=== PATIENT | male | born 1940 | race Hispanic/Latino ===

== ENCOUNTER 2017-10-30 06:19 | Day surgery (SDC) | payer MEDICARE, OTHER ==
[2017-10-29 08:49] VITALS: BMI 23.7
[2017-10-30 07:08] LABS: CALCIUM 9.1 mg/dL (8.4-10.5)
[2017-10-30 07:13] LABS: BASO # 0.04 K/mm3 (0.0-2.0); BASO % 0.4 % (0.0-3.0); EOS # 0.2 (0.0-0.7); EOS % 2.4 % (1.5-5.0); GRAN # 5.46 (1.4-6.5); GRAN % 61.3 % (50.0-68.0); HEMOGLOBIN 13.3 g/dL (14.0-18.0); LYMPH # 2.2 (1.2-3.4); LYMPH % 24.8 % (22.0-35.0); MEAN CELL VOLUME 88.5 fl (80.0-105.0); MEAN CORPUSCULAR HGB CONC 33.8 g/dl (31.0-37.0); MEAN PLATELET VOLUME 10.1 fl (7.0-11.0); MONO % 11.1 % (1.0-6.0); RBC 4.44 10^6/uL (3.5-6.1); RED CELL DISTRIBUTION WIDTH 13.2 % (11.5-14.5); WHITE BLOOD COUNT 8.9 10^3/ul (4.5-11.0)
[2017-10-30 07:23] LABS: INR 1.31 (0.93-1.08); PARTIAL THROMBOPLASTIN TIME 33.7 Seconds (25.1-36.5); PROTHROMBIN TIME 15.2 SECONDS (9.4-12.5)
[2017-10-30] MEDS ORDERED: Iodixanol 320 mg/ml 150 ml Bottle IV ONE (07:51)
[2017-10-30] MEDS ORDERED: Iodixanol 320 MG/ML 200 ML BOTTLE IV ONE (07:52)
[2017-10-30] MEDS ORDERED: Lidocaine 2% Inj (20ml) ONE (07:55)
[2017-10-30] MEDS ORDERED: Iodixanol 320 MG/ML 100 ML BOTTLE IV ONE (07:57)
[2017-10-30] MEDS ORDERED: Midazolam 2 MG/2 ML VIAL ONE ×3 (07:57→09:20)
[2017-10-30] MEDS ORDERED: Nitroglycerin 50mg in D5W 50 MG/250 ML BOTTLE IV ONE (07:58)
[2017-10-30] MEDS ORDERED: HEPARIN SODIUM/NS 2,000 ML IV ONE (07:58)
[2017-10-30] MEDS ORDERED: Verapamil 2 ML ONE ×2 (09:49→10:14)
[2017-10-30] MEDS ORDERED: Oxycodone/Acetaminophen 5/325 mg Tab PO PRN (10:47)
--- NOTE | 2017-10-30 14:07 | CP.PCM.HP ---
<Brett Pulliam - Last Filed: 10/30/17 14:42> History of Present Illness - History of Present Illness History of Present Illness: Chief Complaint: Status/post Femoral Angiogram HPI: Patient is a 77 year male with a past medical history of diabetes mellitus II diagnosed around twenty years ago, hypertension, and peripheral vascular disease with ischemic ulceration of right foot who presents status post femoral angiogram. Initial studies included lower extremities ELBERT exam which revealed bilateral popliteal, trifurcation and or tibial disease and possible right iliac occlusive disease. Patient admits to tenderness at site of catheterization , denies chest pain dizziness, shortness of breath, nausea, vomiting, diarrhea. PMD: Dr. Carmichael ([place]) [employer] President: currently without. Has not seen a dye expert in over ten years Family history: Mother- DM II, CKD. Uncles- [place] Social history: past heavy smoker but quit 35 years ago, admits to social alcohol consumption, denies illicit drug use. Allergies: NKDA Surgical history: Prostate cystoscopy 5 years ago Medications Present on Admission - Present on Admission Any Indicators Present on Admission: Yes Review of Systems - Constitutional Constitutional: absent: Chills, Headache - EENT Eyes: absent: Blurred Vision, Change in Vision Ears: absent: Abnormal Hearing, Dizziness - Cardiovascular Cardiovascular: absent: Chest Pain, Chest Pain at Rest, Dyspnea - Respiratory Respiratory: absent: Cough, Dyspnea - Gastrointestinal Gastrointestinal: absent: Diarrhea, Nausea, Vomiting - Genitourinary Genitourinary: absent: Dysuria, Flank Pain - Musculoskeletal Musculoskeletal: absent: Back Pain, Neck Pain - Integumentary Integumentary: Erythema. absent: Alopecia - Neurological Neurological: absent: Confusion, Dizziness, Loss of Vision - Psychiatric Psychiatric: absent: Anxiety - Endocrine Endocrine: absent: Polyphagia, Polyuria - Hematologic/Lymphatic Hematologic: absent: Easy Bleeding, Easy Bruising Past Patient History - CARDIAC Hx Pacemaker: No - NEUROLOGICAL Hx Paralysis: No - HEMATOLOGICAL/ONCOLOGICAL Hx Blood Transfusions: No - MUSCULOSKELETAL/RHEUMATOLOGICAL Hx Musculoskeletal Disorders: Yes - PSYCHIATRIC Hx Emotional Abuse: No Hx Physical Abuse: No Hx Substance Use: No - SURGICAL HISTORY Hx Surgeries: Yes - ANESTHESIA Hx Anesthesia Reactions: No Hx Malignant Hyperthermia: No Meds Home Medications: Home Medication List Medication Instructions Recorded Confirmed Type Metoprolol Tartrate [Lopressor] 150 mg PO DAILY #0 10/31/17 10/30/17 Rx Allergies/Adverse Reactions: Allergies Allergy/AdvReac Type Severity Reaction Status Date / Time No Known Allergies Allergy Verified 10/02/14 09:19 Physical Exam - Constitutional Appears: Non-toxic, No Acute Distress - Head Exam Head Exam: ATRAUMATIC, NORMAL INSPECTION, NORMOCEPHALIC - Eye Exam Eye Exam: EOMI, Normal appearance - ENT Exam ENT Exam: Mucous Membranes Moist, Normal Exam - Neck Exam Neck exam: Positive for: Normal Inspection - Respiratory Exam Respiratory Exam: Clear to Auscultation Bilateral, NORMAL BREATHING PATTERN - Cardiovascular Exam Cardiovascular Exam: REGULAR RHYTHM, +S1, +S2 - GI/Abdominal Exam GI & Abdominal Exam: Normal Bowel Sounds, Soft. absent: Tenderness Additional comments: Cath site in tact, no signs of bleeding, bruising or hematoma formation - Rectal Exam Rectal Exam: NORMAL INSPECTION - Extremities Exam Extremities exam: Positive for: normal inspection Additional comments: 2 PVD wounds on right foot, 1x1 cm, 1x2 cm. - Back Exam Back exam: NORMAL INSPECTION - Neurological Exam Neurological exam: Alert, CN II-XII Intact, Oriented x3 - Psychiatric Exam Psychiatric exam: Normal Affect, Normal Mood - Skin Skin Exam: Intact, Normal Color, Warm Results - Vital Signs Recent Vital Signs: Last Vital Signs Temp 98.1 F 10/30/17 11:53 Pulse 78 10/30/17 12:29 Resp 15 10/30/17 11:53 BP 178/83 H 10/30/17 12:29 Pulse Ox 100 10/30/17 06:40 - Labs Result Diagrams: 10/30/17 06:38 10/30/17 06:38 Labs: Laboratory Results - last 24 hr 10/30/17 10/30/17 10/30/17 06:38 06:38 06:38 WBC 8.9 RBC 4.44 Hgb 13.3 L Hct 39.3 L MCV 88.5 MCH 30.0 MCHC 33.8 RDW 13.2 Plt Count 250 MPV 10.1 Gran % 61.3 Lymph % (Auto) 24.8 [place] % (Auto) 11.1 H Eos % (Auto) 2.4 Baso % (Auto) 0.4 Gran # 5.46 Lymph # (Auto) 2.2 [place] # (Auto) 1.0 H Eos # (Auto) 0.2 Baso # (Auto) 0.04 PT 15.2 H INR 1.31 H APTT 33.7 Sodium 141 Potassium 4.3 Chloride 104 Carbon Dioxide 25 Anion Gap 17 BUN 43 H Creatinine 1.8 H Est GFR ( Amer) 44 Est GFR (Non-Af Amer) 37 POC Glucose (mg/dL) Random Glucose 167 H Calcium 9.1 10/30/17 12:20 WBC RBC Hgb Hct MCV MCH MCHC RDW Plt Count MPV Gran % Lymph % (Auto) [place] % (Auto) Eos % (Auto) Baso % (Auto) Gran # Lymph # (Auto) [place] # (Auto) Eos # (Auto) Baso # (Auto) PT INR APTT Sodium Potassium Chloride Carbon Dioxide Anion Gap BUN Creatinine Est GFR ( Amer) Est GFR (Non-Af Amer) POC Glucose (mg/dL) 165 H Random Glucose Calcium Assessment & Plan - Assessment and Plan (Free Text) Assessment: Patient is a 77 year male with a past medical history of diabetes mellitus II diagnosed around twenty years ago, hypertension, and peripheral vascular disease with ischemic ulceration of right foot who presents status post femoral angiogram. Plan: S/P Femoral angiogram -Verify home medications with pharmacy and start -D/C kerrie tomorrow -CBC, BMP, IN/PTT in a.m.; will monitor H&H -Monitor urine output -Start coumadin 5 mg today Diabetes Mellitus -Insulin sliding scale -HgA1C -fingeticks qACHS Hypertension -Will restart home medications Acute kidney injury -Most likely due to contrast from femoral angiogram -IVF@ 80 <Noni Batista - Last Filed: 10/31/17 13:19> Results - Vital Signs Recent Vital Signs: Last Vital Signs Temp 98.1 F 10/31/17 11:57 Pulse 68 10/31/17 11:57 Resp 18 10/31/17 11:57 BP 180/89 H 10/31/17 12:55 Pulse Ox 96 10/31/17 05:54 - Labs Result Diagrams: 10/31/17 05:30 10/31/17 05:30 Labs: Laboratory Results - last 24 hr 10/30/17 10/30/17 10/31/17 16:07 21:39 05:30 WBC 9.5 RBC 3.97 Hgb 11.8 L Hct 35.1 L MCV 88.4 MCH 29.7 MCHC 33.6 RDW 13.4 Plt Count 206 MPV 9.7 PT INR Sodium Potassium Chloride Carbon Dioxide Anion Gap BUN Creatinine Est GFR ( Amer) Est GFR (Non-Af Amer) POC Glucose (mg/dL) 239 H 145 H Random Glucose Hemoglobin A1c Calcium 10/31/17 10/31/17 10/31/17 05:30 05:30 05:30 WBC RBC Hgb Hct MCV MCH MCHC RDW Plt Count MPV PT 14.9 H INR 1.29 H Sodium 137 Potassium 4.4 Chloride 105 Carbon Dioxide 21 Anion Gap 15 BUN 33 H Creatinine 1.6 H Est GFR ( Amer) 51 Est GFR (Non-Af Amer) 42 POC Glucose (mg/dL) Random Glucose 81 Hemoglobin A1c 11.2 H Calcium 8.1 L 10/31/17 10/31/17 07:13 11:07 WBC RBC Hgb Hct MCV MCH MCHC RDW Plt Count MPV PT INR Sodium Potassium Chloride Carbon Dioxide Anion Gap BUN Creatinine Est GFR ( Amer) Est GFR (Non-Af Amer) POC Glucose (mg/dL) 75 225 H Random Glucose Hemoglobin A1c Calcium Attending/Attestation - Attestation I have personally seen and examined this patient.: Yes I have fully participated in the care of the patient.: Yes I have reviewed all pertinent clinical information: Yes Notes (Text): 10/31/17 13:15 attending note; Patient seen and examined with resident. Patient is a 77-year-old male with a past medical history of diabetes mellitus , hypertension, and peripheral vascular disease with ischemic ulceration of right foot who presents status post femoral angiogram. status post right posterior tibial angioplasty and anterior tibial atherectomy. peripheral pulses feeble.foot warm. capillary refill present. hypertension; continue medications. history of A. fib; started back on Coumadin. Adjust dosage according to INR. Chronic kidney disease; creatinine is 1.8. Continue IV fluids. Monitor urine output. Repeat BMP in a.m.. Case discussed with Dr. Cm in detail. Upon discharge The patient will follow up with PMD in [place]. Patient will follow up with podiatry/urology as outpatient.
[2017-10-30] MEDS: Insulin Reg-LOW-Coverage SC SCH ×2 (18:19→21:55)
--- NOTE | 2017-10-30 19:37 | VASCULAR ---
PROCEDURE: 1. Abdominal aortogram and right lower extremity runoff 2. Right posterior tibial artery angioplasty 3. Right anterior tibial artery CS I atherectomy and angioplasty HISTORY: Severe peripheral vascular disease. Ischemic ulceration and severe rest pain PHYSICIAN(S): Cyril Cm M.D. TECHNIQUE: The relative risks and indications of the procedure were explained to the patient and consent obtained. The patient was hydrated prior to the procedure and the appropriate labs drawn. The patient was placed supine on the arteriogram table and the left groin prepped and draped in the usual sterile fashion. Conscious sedation and monitoring were provided throughout the procedure by a nurse. Under ultrasound guidance, the left common femoral artery was punctured with a micropuncture set. A 5 [place] sheath was placed. Through the sheath no per guidewire a 5 [place] flush catheter was placed the abdominal aorta and a DSA abdominal pelvic arteriogram performed. The catheter was pulled on aortic bifurcation RPO DSA pelvic arteriogram performed. The catheter was advanced over bifurcation placed in the proximal right SFA. An overlapping right lower extremity DSA arteriogram was performed. Contrast was limited due to the patient's renal insufficiency. Over support wire and a 6 [place], 70 cm sheath was placed the distal right SFA. Heparin and nitroglycerin were given. 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 The distal right posterior tibial artery was dilated with a 2.5 x 120 mm balloon. An excellent angiographic result was obtained. The proximal right posterior tibial artery was dilated with a 3.5 mm balloon. Next the 5 [place] catheter was directed down the occluded right anterior tibial artery. The chronic right anterior tibial artery occlusion was crossed rather easily with a 0.014 confienza guidewire. Unfortunately a long tapered balloon would not follow wire. Subsequently exchange is made for a a 0.014 Viper guidewire. CS I atherectomy of the right anterior tibial artery was performed with a 1.25 mm micro ry. Next the mid to distal right anterior tibial artery was dilated with a tapered 2.5/3 0.0 x 210 mm balloon. The proximal and mid right anterior tibial artery was dilated with a tapered 0.0/3 0.5 mm by 210 balloon. An excellent angiographic result was obtained. The sheath was removed hemostasis obtained with a Perclose device. The patient tolerated the procedure well. The patient was admitted overnight for hydration and to monitor renal function FINDINGS: There are single renal arteries bilaterally which are widely patent and normal in appearance. The nephrograms are symmetric in appearance. The infrarenal abdominal aorta is widely patent without a radiographically significant stenosis. The aortic bifurcation is widely patent. The common and external iliac arteries are normal in appearance without a significant stenosis. The internal iliac arteries are patent bilaterally. Right lower extremity: The right common femoral artery is patent. The right profunda femoral artery is patent. The right superficial femoral artery is patent and continuous without a radiographically significant stenosis. The right popliteal artery is calcified and patent. There is severe right trifurcation and tibial occlusive disease. Anterior tibial artery occludes near its origin. The right posterior tibial artery has a high-grade stenosis at its origin along with a 8 cm occlusion distally. The right peroneal artery is small and diseased. There is significant pedal disease present. The plantar arch is opacified but calcified and small. Right dorsalis pedis artery is patent. IMPRESSION: 1.Successful right posterior tibial artery angioplasty. 2. Successful right anterior tibial artery CS I atherectomy and angioplasty.
[2017-10-30] MEDS: Sodium Chloride 0.45% 1,000 ML IV SCH (21:40)
[2017-10-31] MEDS: Sodium Chloride 0.45% 1,000 ML IV SCH (00:29)
[2017-10-31 05:55] VITALS: TEMP 98.1; O2SAT 96
[2017-10-31 06:22] LABS: HEMOGLOBIN 11.8 g/dL (14.0-18.0); MEAN CELL VOLUME 88.4 fl (80.0-105.0); MEAN CORPUSCULAR HEMOGLOBIN 29.7 pg (25.0-35.0); MEAN CORPUSCULAR HGB CONC 33.6 g/dl (31.0-37.0); MEAN PLATELET VOLUME 9.7 fl (7.0-11.0); RBC 3.97 10^6/uL (3.5-6.1); RED CELL DISTRIBUTION WIDTH 13.4 % (11.5-14.5); WHITE BLOOD COUNT 9.5 10^3/ul (4.5-11.0)
[2017-10-31 06:44] LABS: CALCIUM 8.1 mg/dL (8.4-10.5)
[2017-10-31 07:19] LABS: INR 1.29 (0.93-1.08); PROTHROMBIN TIME 14.9 SECONDS (9.4-12.5)
[2017-10-31] MEDS: Insulin Reg-LOW-Coverage SC SCH ×2 (08:07→12:55)
--- NOTE | 2017-10-31 10:31 | CP.PCM.DIS ---
<Brett Pulliam - Last Filed: 11/01/17 03:16> Provider - Provider Attending physician: Cyril Cm MD Consults: Interventional radiology: Dr. Cyril Cm Time Spent in preparation of Discharge (in minutes): 45 Diagnosis - Discharge Diagnosis (1) Peripheral vascular disease Status: Acute Priority: High (2) Diabetes mellitus Status: Chronic Priority: High (3) Hypertension Status: Chronic Priority: Medium Hospital Course - Lab Results Lab Results: Most Recent Lab Values WBC 9.5 10^3/ul (4.5-11.0) 10/31/17 05:30 RBC 3.97 10^6/uL (3.5-6.1) 10/31/17 05:30 Hgb 11.8 g/dL (14.0-18.0) L 10/31/17 05:30 Hct 35.1 % (42.0-52.0) L 10/31/17 05:30 MCV 88.4 fl (80.0-105.0) 10/31/17 05:30 MCH 29.7 pg (25.0-35.0) 10/31/17 05:30 MCHC 33.6 g/dl (31.0-37.0) 10/31/17 05:30 RDW 13.4 % (11.5-14.5) 10/31/17 05:30 Plt Count 206 10^3/uL (120.0-450.0) 10/31/17 05:30 MPV 9.7 fl (7.0-11.0) 10/31/17 05:30 Gran % 61.3 % (50.0-68.0) 10/30/17 06:38 Lymph % (Auto) 24.8 % (22.0-35.0) 10/30/17 06:38 [place] % (Auto) 11.1 % (1.0-6.0) H 10/30/17 06:38 Eos % (Auto) 2.4 % (1.5-5.0) 10/30/17 06:38 Baso % (Auto) 0.4 % (0.0-3.0) 10/30/17 06:38 Gran # 5.46 (1.4-6.5) 10/30/17 06:38 Lymph # (Auto) 2.2 (1.2-3.4) 10/30/17 06:38 [place] # (Auto) 1.0 (0.1-0.6) H 10/30/17 06:38 Eos # (Auto) 0.2 (0.0-0.7) 10/30/17 06:38 Baso # (Auto) 0.04 K/mm3 (0.0-2.0) 10/30/17 06:38 PT 14.9 SECONDS (9.4-12.5) H 10/31/17 05:30 INR 1.29 (0.93-1.08) H 10/31/17 05:30 APTT 33.7 Seconds (25.1-36.5) 10/30/17 06:38 Sodium 137 mmol/L (132-148) 10/31/17 05:30 Potassium 4.4 mmol/L (3.6-5.0) 10/31/17 05:30 Chloride 105 mmol/L (98-107) 10/31/17 05:30 Carbon Dioxide 21 mmol/L (21-33) 10/31/17 05:30 Anion Gap 15 (10-20) 10/31/17 05:30 BUN 33 mg/dL (7-21) H 10/31/17 05:30 Creatinine 1.6 mg/dl (0.8-1.5) H 10/31/17 05:30 Est GFR ( Amer) 51 10/31/17 05:30 Est GFR (Non-Af Amer) 42 10/31/17 05:30 POC Glucose (mg/dL) 75 mg/dL (65-110) 10/31/17 07:13 Random Glucose 81 mg/dL (70-110) 10/31/17 05:30 Calcium 8.1 mg/dL (8.4-10.5) L 10/31/17 05:30 - Hospital Course Hospital Course: Patient is a 77 year male with a past medical history of diabetes mellitus II diagnosed around twenty years ago, hypertension, and peripheral vascular disease with ischemic ulceration of right foot who presented status post femoral angiogram. Initial studies included lower extremities ELBERT exam which revealed bilateral popliteal, trifurcation and or tibial disease and possible right iliac occlusive disease. Patient was started back on Coumadin for which patient will follow up with primary to adjust dosage according to INR within 3- 5 days. IVF fluids were continued overnight and urine output was monitored. Morning lab work revealed improving creatinine. Patient was seen by interventional radiologist and cleared for discharge. Patient was evaluated and examined, no hematomas were noted at site of procedure. Patient was given instructions and home medications were verified with pharmacy and restarted. Patient was in agreement with plan and discharged. Case reviewed and discussed with attending Dr. Lester Pulliam PGY1 Discharge Exam - Head Exam Head Exam: ATRAUMATIC, NORMAL INSPECTION, NORMOCEPHALIC - Eye Exam Eye Exam: EOMI, Normal appearance - ENT Exam ENT Exam: Mucous Membranes Moist - Neck Exam Neck exam: Full Rom, Normal Inspection - Respiratory Exam Respiratory Exam: Clear to PA & Lateral, NORMAL BREATHING PATTERN, UNREMARKABLE. absent: Rhonchi, Wheezes - Cardiovascular Exam Cardiovascular Exam: REGULAR RHYTHM, +S1, +S2 - GI/Abdominal Exam GI & Abdominal Exam: Normal Bowel Sounds, Unremarkable - Back Exam Back exam: NORMAL INSPECTION - Neurological Exam Neurological exam: Alert, CN II-XII Intact, Oriented x3 - Psychiatric Exam Psychiatric exam: Normal Affect, Normal Mood - Skin Skin Exam: Intact, Normal Color, Warm Discharge Plan - Follow Up Plan Condition: GOOD Disposition: HOME/ ROUTINE Instructions: Heart Healthy Diet, Carotid Artery Disease (DC) Additional Instructions: 1. Follow up with PMD in 3 to 5 days. 2. Follow up with BMP in 3 to 5 days. 3. Follow up with urology. 4. Follow up with cardiology of choice. 5. Do not lift anything heavier than a gallon of milk for one week. Referrals: Cyril Cm MD [Staff Provider] - <Noni Batista - Last Filed: 11/01/17 07:41> Provider - Provider Attending physician: Cyril Cm MD Hospital Course - Lab Results Lab Results: Most Recent Lab Values WBC 9.5 10^3/ul (4.5-11.0) 10/31/17 05:30 RBC 3.97 10^6/uL (3.5-6.1) 10/31/17 05:30 Hgb 11.8 g/dL (14.0-18.0) L 10/31/17 05:30 Hct 35.1 % (42.0-52.0) L 10/31/17 05:30 MCV 88.4 fl (80.0-105.0) 10/31/17 05:30 MCH 29.7 pg (25.0-35.0) 10/31/17 05:30 MCHC 33.6 g/dl (31.0-37.0) 10/31/17 05:30 RDW 13.4 % (11.5-14.5) 10/31/17 05:30 Plt Count 206 10^3/uL (120.0-450.0) 10/31/17 05:30 MPV 9.7 fl (7.0-11.0) 10/31/17 05:30 Gran % 61.3 % (50.0-68.0) 10/30/17 06:38 Lymph % (Auto) 24.8 % (22.0-35.0) 10/30/17 06:38 [place] % (Auto) 11.1 % (1.0-6.0) H 10/30/17 06:38 Eos % (Auto) 2.4 % (1.5-5.0) 10/30/17 06:38 Baso % (Auto) 0.4 % (0.0-3.0) 10/30/17 06:38 Gran # 5.46 (1.4-6.5) 10/30/17 06:38 Lymph # (Auto) 2.2 (1.2-3.4) 10/30/17 06:38 [place] # (Auto) 1.0 (0.1-0.6) H 10/30/17 06:38 Eos # (Auto) 0.2 (0.0-0.7) 10/30/17 06:38 Baso # (Auto) 0.04 K/mm3 (0.0-2.0) 10/30/17 06:38 PT 14.9 SECONDS (9.4-12.5) H 10/31/17 05:30 INR 1.29 (0.93-1.08) H 10/31/17 05:30 APTT 33.7 Seconds (25.1-36.5) 10/30/17 06:38 Sodium 137 mmol/L (132-148) 10/31/17 05:30 Potassium 4.4 mmol/L (3.6-5.0) 10/31/17 05:30 Chloride 105 mmol/L (98-107) 10/31/17 05:30 Carbon Dioxide 21 mmol/L (21-33) 10/31/17 05:30 Anion Gap 15 (10-20) 10/31/17 05:30 BUN 33 mg/dL (7-21) H 10/31/17 05:30 Creatinine 1.6 mg/dl (0.8-1.5) H 10/31/17 05:30 Est GFR ( Amer) 51 10/31/17 05:30 Est GFR (Non-Af Amer) 42 10/31/17 05:30 POC Glucose (mg/dL) 225 mg/dL (65-110) H 10/31/17 11:07 Random Glucose 81 mg/dL (70-110) 10/31/17 05:30 Hemoglobin A1c 11.2 % (4.2-6.5) H 10/31/17 05:30 Calcium 8.1 mg/dL (8.4-10.5) L 10/31/17 05:30 Attending/Attestation - Attestation I have personally seen and examined this patient.: Yes I have fully participated in the care of the patient.: Yes I have reviewed all pertinent clinical information, including history, physical exam and plan: Yes Notes (Text): 11/01/17 07:39 attending note; Patient seen and examined with resident. Patient is a 77-year-old male with a past medical history of diabetes mellitus , hypertension, and peripheral vascular disease with ischemic ulceration of right foot who presents status post femoral angiogram. status post right posterior tibial angioplasty and anterior tibial atherectomy. peripheral pulses feeble.foot warm. capillary refill present. hypertension; continue medications. history of A. fib; started back on Coumadin. Adjust dosage according to INR. Advised to follow-up with cardiology of choice. Chronic kidney disease; creatinine is 1.6 today from 1.8. Singh catheter removed. Patient is voiding. Diabetes; continue medication. Dietary education given. Needs to be closely followed by PMD for medication adjustment. Upon discharge The patient will follow up with PMD in [place]. Patient will follow up with podiatry/urology as outpatient.
[2017-10-31 11:57] VITALS: PULSE 68; RESP 18
[2017-10-31 12:57] VITALS: BP 180/89
== END 2017-10-31 13:47 | disposition home or self-care (01) ==
LOC: SDSVAS 06:19 → 2RNO 12:01 → SDSVAS 10-31 13:47
PROVIDERS: ATTEND Radiology Vascular & Interventional Radiology
DX: E11.51 Type 2 diabetes mellitus with diabetic peripheral angiopathy without gangrene (principal); E11.621 Type 2 diabetes mellitus with foot ulcer; L97.519 Non-pressure chronic ulcer of other part of right foot with unspecified severity; I12.9 Hypertensive chronic kidney disease with stage 1 through stage 4 chronic kidney disease, or unspecified chronic kidney disease; E11.22 Type 2 diabetes mellitus with diabetic chronic kidney disease; N18.9 Chronic kidney disease, unspecified; Z87.891 Personal history of nicotine dependence; Z79.84 Long term (current) use of oral hypoglycemic drugs
CPT/HCPCS: 36415 ×2; 37229; 37232; 75625; 75710; 80048 ×2; 82948 ×2; 83036; 85025; 85027; 85610 ×2; 85730; 99152; 99153; C1714; C1725 ×7; C1760 ×2; C1769 ×6; C1887; C1892; C1894; J0360; J0690; J1644 ×2; J1940; J2250; J2405; J3010; J7030; Q9967